=== PATIENT | male | born 1975 | race Caucasian/White ===

== ENCOUNTER → 2023-08-01 06:27 | Day surgery (SDC) | payer OTHER, SELFPAY | LOC: GI 06:27 | PROVIDERS: ATTENDING PHYSICIAN Surgery | DX: K57.30 Diverticulosis of large intestine without perforation or abscess without bleeding (principal); K64.9 Unspecified hemorrhoids | CPT/HCPCS: 45378 ==

== ENCOUNTER → 2024-11-25 08:55 | Outpatient (REF) | payer OTHER, SELFPAY | LOC: RAD 08:55 | PROVIDERS: ATTENDING PHYSICIAN Internal Medicine Hematology & Oncology; FAMILY PHYSICIAN Family Medicine | DX: E83.110 Hereditary hemochromatosis (principal) | CPT/HCPCS: 74170; Q9967 ==

== ENCOUNTER 2024-12-09 07:13 | Outpatient (RCR) | payer OTHER, SELFPAY | END 2024-12-09 23:59 | disposition home or self-care (01) | LOC: RPT 07:13 | PROVIDERS: ATTENDING PHYSICIAN Surgery; FAMILY PHYSICIAN Family Medicine | DX: K59.4 Anal spasm (principal); R10.2 Pelvic and perineal pain; M62.89 Other specified disorders of muscle; Z73.6 Limitation of activities due to disability; K58.0 Irritable bowel syndrome with diarrhea; R15.2 Fecal urgency; R10.20 Pelvic and perineal pain unspecified side; K64.8 Other hemorrhoids | CPT/HCPCS: 97014; 97112; 97140; 97163; 97530 ==